=== PATIENT | male | born 1980 | race Caucasian/White ===

== ENCOUNTER 2020-10-17 02:21 | Emergency (ER) | payer MEDICARE, MEDICAID, SELFPAY ==
[2020-10-17 02:32] VITALS: BP 168/87; PULSE 93; RESP 15; TEMP 37.3; O2SAT 96; BMI 36.3
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
--- NOTE | 2020-10-17 02:43 | PC.NURSE ---
pt to rad
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
[2020-10-17 03:36] VITALS: BP 148/81; PULSE 106; RESP 16; TEMP 37.2; O2SAT 94
== END 2020-10-17 03:38 | disposition home or self-care (01) ==
PROVIDERS: Emergency Provider Emergency Medicine; PCP Nurse Practitioner Family
DX: S50.12XA Contusion of left forearm, initial encounter (principal); S00.83XA Contusion of other part of head, initial encounter; V48.0XXA Car driver injured in noncollision transport accident in nontraffic accident, initial encounter; Y92.488 Other paved roadways as the place of occurrence of the external cause
CPT/HCPCS: 70450; 72125; 73110; 99282

== ENCOUNTER → 2022-05-23 06:14 | Outpatient (CLI) | payer MEDICARE, MEDICAID, SELFPAY ==
[2022-05-23 18:22] LABS: Basophils # 0.5 K/mm3 (0-0.2); Basophils % 3.9 % (0.1-2.0); Eosinophils # 0.4 K/mm3 (0.0-0.4); Eosinophils % 3.4 % (0.1-12.0); Hemoglobin 14.6 g/dL (14.1-18.0); Lymphocytes % 24.9 % (10-50); Mean Corpuscular HGB Conc 33.1 g/dL (31.8-35.4); Mean Corpuscular Hemoglobin 27.4 pg (27.0-31.2); Mean Corpuscular Volume 82.8 fl (80-94); Mean Platelet Volume 19.4 fl (7.4-10.4); Monocytes # 0.7 K/mm3 (0.1-1.0); Monocytes % 5.6 % (1.7-9.3); Neutrophils # 8.1 K/mm3 (1.8-7.8); Neutrophils % 66.2 % (37.0-80.0); Platelet Count 315 K/mm3 (142-424); Red Blood Count 5.32 M/mm3 (4.60-6.20); Red Cell Distribution Width 17.4 % (11.5-17.5); White Blood Count 12.2 K/mm3 (4.8-10.8)
[2022-05-23 18:34] LABS: Chloride 100 mmol/L (98-107); Potassium 4.3 mmoL/L (3.5-5.1); Sodium 141 mmol/L (136-145)
[2022-05-23 18:36] LABS: Amylase 33 U/L (30-110); Blood Urea Nitrogen 16 mg/dl (9-20); Estimated Glomerular Filt Rate 147 ml/min (>60); GFR (African American) 178 ML/MIN (>60)
[2022-05-23 18:37] LABS: Alanine Aminotransferase 38 U/L (12-78); Albumin Level 4.2 g/dl (3.5-5.0); Albumin/Globulin Ratio 1.7 (1.1-1.8); Alkaline Phosphatase 97 U/L (38-126); Anion Gap 19.3 mEq/L (5-15); Aspartate Amino Transferase 36 U/L (17-59); Bilirubin,Total 0.2 mg/dl (0.2-1.3); Carbon Dioxide 26 mmol/L (22.0-30.0); Chol/HDL Ratio 4.5 (1-3.5); Cholesterol 98 mg/dl (140-200); Globulin 2.5 g/dL (1.3-3.2); Glucose 128 mg/dl (74-100); HDL Cholesterol 22 mg/dl (40-60); Lipase 76 U/L (23-300); Total Protein,Serum 6.7 g/dl (6.3-8.2); Triglycerides 127 mg/dl (30-150); VLDL Cholesterol 25 mg/dL (0-40)
[2022-05-23 18:44] LABS: Microalbumin/Creatinine Ratio 12.9
[2022-05-23 19:23] LABS: Creatinine,Urine Random 161 mg/dL (Not Estab.)
== END ==
PROVIDERS: Student in an Organized Health Care Education/Training Program; PCP Family Medicine; Visit Provider Family Medicine
DX: I10 Essential (primary) hypertension (principal); E11.9 Type 2 diabetes mellitus without complications; R10.13 Epigastric pain; Z79.4 Long term (current) use of insulin
CPT/HCPCS: 80053; 80061; 82043; 82150; 82570; 83036; 83690; 85025

== ENCOUNTER → 2022-05-29 08:32 | Outpatient (CLI) | payer MEDICARE, MEDICAID, SELFPAY ==
--- NOTE | 2022-05-29 08:37 | US_ITS ---
FINAL REPORT CLINICAL HISTORY: Epigastric pain radiating to R side FINDINGS: Sonographic images of the abdomen were obtained. There is diffuse fatty change in the liver. The gallbladder has an unremarkable appearance without evidence of gallstones. There is no evidence of biliary ductal dilatation. The common hepatic duct measures 3 mm, which is within normal limits. Limited images of the pancreas are unremarkable. The spleen size is normal. The right kidney measures 12.2 cm in length. The left kidney measures 13.2 cm in length. There is normal renal echogenicity. There is no evidence of hydronephrosis. The aorta has an unremarkable appearance. Limited images of the inferior vena cava are unremarkable. IMPRESSION: Diffuse fatty change of the liver. Reviewed, Interpreted and Dictated by Phillip Valerio MD Transcribed by Caroline Martino Authenticated and [facility]
== END ==
PROVIDERS: PCP Family Medicine; Visit Provider Student in an Organized Health Care Education/Training Program
DX: R10.13 Epigastric pain (principal)
CPT/HCPCS: 76700

== ENCOUNTER → 2022-09-05 06:11 | Outpatient (CLI) | payer MEDICARE, MEDICAID, SELFPAY ==
[2022-09-05 19:26] LABS: Hemoglobin A1C 7.8 % (4.0-6.0)
[2022-09-05 20:25] LABS: Microalbumin/Creatinine Ratio 13.7
[2022-09-05 20:33] LABS: Creatinine,Urine Random 77 mg/dL (Not Estab.)
== END ==
PROVIDERS: PCP Family Medicine; Visit Provider Family Medicine
DX: E11.9 Type 2 diabetes mellitus without complications (principal); Z79.4 Long term (current) use of insulin
CPT/HCPCS: 82043; 82570; 83036

== ENCOUNTER → 2022-10-30 16:02 | Outpatient (CLI) | payer MEDICARE, MEDICAID, SELFPAY ==
--- NOTE | 2022-10-30 16:06 | XR_ITS ---
FINAL REPORT CLINICAL HISTORY: possible posterior dislocation FINDINGS: Three views of the left shoulder were obtained. There is no prior exam for comparison. There is no fracture or dislocation. The joint space is preserved. Soft tissues are normal. IMPRESSION: No acute osseous abnormality of the left shoulder. Reviewed, Interpreted and Dictated by Vivien Anne MD Transcribed by Caroline Martino Authenticated and [facility]
--- NOTE | 2022-10-30 16:06 | XR_ITS ---
FINAL REPORT CLINICAL HISTORY: possible forefoot fracture FINDINGS: AP, oblique and lateral views of the right foot were obtained. There is no prior exam for comparison. There is no acute fracture or dislocation. The Lisfranc articulation appears intact. There is mild degenerative disease. There is forefoot soft tissue edema. IMPRESSION: Forefoot soft tissue edema with no acute osseous abnormality of the right foot. Reviewed, Interpreted and Dictated by Vivien Anne MD Transcribed by Caroline Martino Authenticated and [facility]
== END ==
PROVIDERS: PCP Family Medicine; Visit Provider Family Medicine
DX: M25.512 Pain in left shoulder; M79.671 Pain in right foot
CPT/HCPCS: 73030; 73630

== ENCOUNTER 2023-01-09 14:10 | Outpatient (RCR) | payer MEDICARE, MEDICAID, SELFPAY | END 2023-02-19 16:45 | disposition home or self-care (01) | LOC: PT 14:10 | PROVIDERS: PCP Family Medicine; Visit Provider Specialist/Technologist Athletic Trainer | DX: S39.012D Strain of muscle, fascia and tendon of lower back, subsequent encounter | CPT/HCPCS: 97163 ==

== ENCOUNTER 2023-09-13 16:42 | Outpatient (CLI) | payer MEDICARE, MEDICAID, SELFPAY ==
[2023-09-13 17:08] LABS: Basophils # 0.1 K/mm3 (0-0.2); Basophils % 0.9 % (0.1-2.0); Eosinophils # 0.2 K/mm3 (0.0-0.4); Eosinophils % 1.9 % (0.1-12.0); Hematocrit 42.4 % (42.0-52.0); Hemoglobin 13.9 g/dL (14.1-18.0); Lymphocytes # 2.6 K/mm3 (0.7-4.5); Lymphocytes % 28.3 % (10-50); Mean Corpuscular HGB Conc 32.8 g/dL (31.8-35.4); Mean Corpuscular Hemoglobin 27.7 pg (27.0-31.2); Mean Corpuscular Volume 84.3 fl (80-94); Mean Platelet Volume 8.7 fl (7.4-10.4); Monocytes # 0.5 K/mm3 (0.1-1.0); Monocytes % 5.1 % (1.7-9.3); Neutrophils # 5.8 K/mm3 (1.8-7.8); Neutrophils % 63.8 % (37.0-80.0); Platelet Count 292 K/mm3 (142-424); Red Blood Count 5.03 M/mm3 (4.60-6.20); Red Cell Distribution Width 16.2 % (11.5-17.5); White Blood Count 9.1 K/mm3 (4.8-10.8)
[2023-09-13 17:25] LABS: Alanine Aminotransferase 27 U/L (12-78); Albumin Level 3.5 g/dl (3.5-5.0); Albumin/Globulin Ratio 1.4 (1.1-1.8); Alkaline Phosphatase 81 U/L (38-126); Anion Gap 8.3 mEq/L (5-15); Aspartate Amino Transferase 26 U/L (17-59); Bilirubin,Total 0.3 mg/dl (0.2-1.3); Blood Urea Nitrogen 16 mg/dl (9-20); Calcium 8.4 mg/dl (8.4-10.2); Carbon Dioxide 27 mmol/L (22.0-30.0); Chloride 101 mmol/L (98-107); Chol/HDL Ratio 4.3 (1-3.5); Cholesterol 95 mg/dl (140-200); Estimated Glomerular Filt Rate 181 ml/min (>60); GFR (African American) 219 ML/MIN (>60); Globulin 2.5 g/dL (1.3-3.2); Glucose 237 mg/dl (74-100); HDL Cholesterol 22 mg/dl (40-60); Potassium 4.3 mmoL/L (3.5-5.1); Sodium 132 mmol/L (136-145); Triglycerides 82 mg/dl (30-150); VLDL Cholesterol 16 mg/dL (0-40)
[2023-09-13 17:35] LABS: Direct LDL Cholesterol 64.87 mg/dL (100-129)
[2023-09-14 15:48] LABS: Creatinine,Urine Random 100 mg/dL (Not Estab.)
[2023-09-14 15:51] LABS: Microalbumin/Creatinine Ratio 168.9
== END 2023-09-13 23:59 ==
LOC: LAB.DROPOF 16:43
PROVIDERS: PCP Family Medicine; Visit Provider Family Medicine
DX: I10 Essential (primary) hypertension (principal); E11.9 Type 2 diabetes mellitus without complications; Z79.4 Long term (current) use of insulin
CPT/HCPCS: 80053; 80061; 82043; 82570; 83036; 85025

== ENCOUNTER 2024-01-24 09:19 | Outpatient (CLI) | payer MEDICARE, MEDICAID, SELFPAY ==
[2024-01-24 16:44] LABS: Basophils # 0.1 K/mm3 (0-0.2); Basophils % 1.5 % (0.1-2.0); Chloride 103 mmol/L (98-107); Eosinophils # 0.2 K/mm3 (0.0-0.4); Hematocrit 42.2 % (42.0-52.0); Hemoglobin 13.7 g/dL (14.1-18.0); Lymphocytes # 2.4 K/mm3 (0.7-4.5); Lymphocytes % 30.4 % (10-50); Mean Corpuscular HGB Conc 32.6 g/dL (31.8-35.4); Mean Corpuscular Hemoglobin 27.9 pg (27.0-31.2); Mean Corpuscular Volume 85.6 fl (80-94); Monocytes # 0.5 K/mm3 (0.1-1.0); Monocytes % 5.9 % (1.7-9.3); Neutrophils # 4.7 K/mm3 (1.8-7.8); Neutrophils % 59.1 % (37.0-80.0); Platelet Count 317 K/mm3 (142-424); Red Blood Count 4.92 M/mm3 (4.60-6.20); Red Cell Distribution Width 16.5 % (11.5-17.5); White Blood Count 7.9 K/mm3 (4.8-10.8)
[2024-01-24 16:45] LABS: Potassium 4.6 mmoL/L (3.5-5.1); Sodium 138 mmol/L (136-145)
[2024-01-24 16:47] LABS: Alanine Aminotransferase 38 U/L (12-78); Alkaline Phosphatase 88 U/L (38-126); Aspartate Amino Transferase 37 U/L (17-59); Bilirubin,Total 0.4 mg/dl (0.2-1.3); Blood Urea Nitrogen 15 mg/dl (9-20); Estimated Glomerular Filt Rate 181 ml/min (>60); GFR (African American) 219 ML/MIN (>60)
[2024-01-24 16:48] LABS: Albumin Level 3.5 g/dl (3.5-5.0); Albumin/Globulin Ratio 1.3 (1.1-1.8); Anion Gap 12.6 mEq/L (5-15); Calcium 9.6 mg/dl (8.4-10.2); Carbon Dioxide 27 mmol/L (22.0-30.0); Globulin 2.6 g/dL (1.3-3.2); Glucose 226 mg/dl (74-100); Magnesium 1.4 mg/dl (1.6-2.3); Total Protein,Serum 6.1 g/dl (6.3-8.2)
[2024-01-24 17:19] LABS: Hemoglobin A1C 9.6 % (4.0-6.0); Thyroid Stimulating Hormone 2.93 uIU/mL (0.465-4.68)
== END 2024-01-24 23:59 | disposition home or self-care (01) ==
LOC: LAB.DROPOF 01-25 09:20
PROVIDERS: PCP Nurse Practitioner Family; Visit Provider Nurse Practitioner Family
DX: E11.9 Type 2 diabetes mellitus without complications (principal); R25.2 Cramp and spasm; Z79.4 Long term (current) use of insulin; Z79.84 Long term (current) use of oral hypoglycemic drugs
CPT/HCPCS: 80053; 83036; 83735; 84443; 85025

== ENCOUNTER 2025-07-02 08:00 | Outpatient (RCR) | payer MEDICARE, SELFPAY | END 2025-07-02 23:59 | disposition home or self-care (01) | LOC: PT.CARL 08:00 | PROVIDERS: Visit Provider Student in an Organized Health Care Education/Training Program | DX: M75.21 Bicipital tendinitis, right shoulder (principal); M75.81 Other shoulder lesions, right shoulder | CPT/HCPCS: 97032; 97035; 97110; 97161; 97530 ==

== ENCOUNTER 2025-07-09 08:00 | Outpatient (RCR) | payer MEDICARE, MEDICAID, SELFPAY | END 2025-07-09 23:59 | disposition home or self-care (01) | LOC: PT.CARL 08:00 | PROVIDERS: Visit Provider Student in an Organized Health Care Education/Training Program | DX: M75.21 Bicipital tendinitis, right shoulder (principal) | CPT/HCPCS: 97032; 97110; 97140; 97530 ==